=== PATIENT | female | born 1955 | race Caucasian/White ===

== ENCOUNTER 2018-10-20 06:09 | Day surgery (SDC) | payer BC ==
[2018-10-19 17:10] LABS: Absolute Lymphocytes (CBC) 1.8 K/uL (0.7-4.9); Basophils % 0.5 % (0-1.3); Hematocrit 44.3 % (36.0-45.0); Lymphocytes % 22.2 % (15.3-44.8); MPV 7.6 fL (7.6-11.3); RBC Red Blood Cell Count 4.73 M/uL (3.86-4.86)
[2018-10-19 17:14] LABS: Protime INR 0.98
--- NOTE | 2018-10-19 21:08 | PREOPHP ---
Date of Admission: 10/19/2018 History Of Present Illness: A 63-year-old female with what we think is a prolapsed uterine fibroid o r a large endometrial polyp. Patient also on ultrasound exam has a thickened endometrium. She knows this could be endometrial hyperplasia or even cancer of the endometrial. She has really not had any kind of bleeding problems of any significance. Pap smear recently done was normal and included scra ping of this lesion that is protruding from the cervix. Infection; blood loss; anesthetic complicati ons; injury to bladder, bowel, ureter; postoperative complications; clots in legs; and pneumonia. Th e patient knows fully well this does not constitute all the problems that could occur during or follo wing surgery and knows that if we do find abnormal tissue that she will have to have other surgery pr obably with [facility], which we have already discussed. Patient gives a history of allergy to morp vicky, codeine, and muscle relaxants, although most of this is nausea, dizziness and hives. Family History: Mother with breast cancer at age 55. Mother and father with hypertension and patien t has hypertension. Father had a heart attack. Past Surgical History: Patient has had a tubal, 2 C-sections. Medications: Has been on lisinopril in the past. Social History: Does not smoke. Physical Examination: HEENT: Clear. Pupils are equal, round, and reactive to light and accommodation. Conjunctivae well perfused. No oral, lingual, or buccal lesions. Chest and Lungs: Clear. Heart: Without murmurs, thrills, heaves, or rubs. Breasts: Not examined, but without masses on previous visits. Abdomen: Soft. Extremities: Clear. Genitourinary: The cervix has a polypoid type lesion that is at least 3.5 cm across, seems to have a pedicle extending into the endocervical canal. The uterine size seems to be fairly normal, but as s tated with the ultrasound is thickened endometrium. Plan: We plan to induce a general anesthetic, remove this cervical lesion and then do a MyoSure proc edure with a hysteroscopy of course and then end up with an ablation procedure. Full discussion abou t options including referral for hysterectomy, but she knows that no one will do hysterectomy before we get endometrial sampling. PATRICK/DAISY Voice ID: [id number]
[2018-10-20] MEDS ORDERED: CEFAZOLIN/SWI 2gm 2 GM/20 ML SYR ONE (06:16)
[2018-10-20] MEDS ORDERED: Ringers Lactate 1,000 ML IV ONE ×2 (06:16→10:42)
[2018-10-20] MEDS ORDERED: FENTANYL CITR 100 MCG/2 ML ONE ×2 (07:05→10:22)
[2018-10-20] MEDS ORDERED: MIDAZOLAM HCL 2 MG/2 ML INJ ONE (07:05)
[2018-10-20] MEDS ORDERED: PROPOFOL 200 MG/20 ML VIAL IV ONE (07:05)
[2018-10-20] MEDS ORDERED: LIDOCAINE 2% MPF 5 ML VIAL ONE (07:05)
[2018-10-20] MEDS ORDERED: ONDANSETRON 4 MG/2 ML VIAL ONE ×2 (07:05→12:43)
[2018-10-20] MEDS ORDERED: SILVER NITRATE 1 APPL TOP ONE (08:01)
[2018-10-20] MEDS ORDERED: GLYCOPYRROLATE 0.2 MG/ML SYR ONE ×2 (09:34→09:36)
[2018-10-20] MEDS: HYDROMORPHONE HCL 1 MG/ML INJ ONE ×2 (10:48→10:55)
[2018-10-20] MEDS ORDERED: IBUPROFEN 200 MG TAB PO ONE (12:10)
--- NOTE | 2018-10-20 14:15 | OP ---
Surgeon: Vladimir Braun MD This 63-year-old female with endocervical prolapsed lesions and thickened endometrium. Full preopera tive counseling concerning the procedure and possible complications, including infection, blood loss, anesthetic complications, injury to bladder, bowel or ureter. Postoperative complications, clots in legs, pneumonia. The patient knows fully well that this procedure demonstrates tissue that is signi ficantly abnormal. She will be referred probably to MD Simpson for followup. General anesthesia, e ndotracheal intubation, lithotomy position. After prepping and draping, the lesion was grasped. The re was prolapse out of the cervix and fulgurated at its base. This was sent to Pathology. D and C w ere performed very lightly and tissue sent, which subsequently showed no carcinomatous tissue but of course, this is a frozen section. A MyoSure procedure was performed and multiple endometrial lesions appearing to be almost fibroids but possibly polyps were removed. After removal of polyps, it was d ecided to proceed with ablation as no abnormal tissue had been seen, 5.5 length, 3.6 width after acti vation 1 minute and 13 seconds approximately for the procedure. Instruments were removed. No signifi cant bleeding was seen. The patient tolerated all procedures well was transferred to the recovery ro in good condition. Final Diagnosis: Endocervical lesion, pathology pending. Frozen section showed no significant endom etrial abnormalities. Dilation and curettage, MyoSure and ablation performed. PATRICK/DAISY Voice ID: [id number] Report ID: [id number]
--- NOTE | 2018-10-20 14:18 | DS ---
Date of Discharge: 10/20/2018 Summary: This 63-year-old female who underwent removal of endocervical prolapsed lesion, D and C, hy steroscopy, MyoSure and ablation. Minimal blood loss, 200 cc fluid deficit. The patient tolerated a ll procedures well. She will be watched for the next 2 hours, then dismissed, to return to my office next week for followup. To report any temperature elevation of 100 degrees greater, severe pain, hea vy bleeding, or any other type of abnormalities. Final pathology is pending. PATRICK/DAISY Voice ID: [id number] Report ID: [id number]
== END 2018-10-20 13:08 | disposition home or self-care (01) ==
LOC: OR 06:09
PROVIDERS: ATTEND Specialist
PROC: 0UBC7ZX Excision of Cervix, Via Natural or Artificial Opening, Diagnostic (ICD-10-PCS; 2018-10-20)
PROC: 0UDB7ZX Extraction of Endometrium, Via Natural or Artificial Opening, Diagnostic (ICD-10-PCS; 2018-10-20)
PROC: 0U5B8ZZ Destruction of Endometrium, Via Natural or Artificial Opening Endoscopic (ICD-10-PCS; principal; 2018-10-20 07:30)
PROC: 0UDB7ZX Extraction of Endometrium, Via Natural or Artificial Opening, Diagnostic (ICD-10-PCS; 2018-10-20 07:30)
DX: N84.1 Polyp of cervix uteri (principal); N84.0 Polyp of corpus uteri; R93.89 Abnormal findings on diagnostic imaging of other specified body structures; I10 Essential (primary) hypertension; M19.90 Unspecified osteoarthritis, unspecified site; Z88.6 Allergy status to analgesic agent; Z80.3 Family history of malignant neoplasm of breast; Z82.49 Family history of ischemic heart disease and other diseases of the circulatory system
CPT/HCPCS: 85025; 36415; 86900; 86850; 85610; 86901; 88331 ×2; 88305; 85730; 58563; 58558; J2704; J2250; J3010 ×2; J1170; J0690; J2405 ×2; 88332